=== PATIENT | female | born 1965 ===

== ENCOUNTER 2017-06-22 15:32 | Emergency (ER) | payer SELFPAY ==
[2017-06-22 15:32] VITALS: BMI 28.8
--- NOTE | 2017-06-22 16:17 | ED PDOC ---
HPI: Chest Pain Time Seen by Provider: 06/22/17 15:50 Chief Complaint (Nursing): Flu-like Symptoms Chief Complaint (Provider): Chest Pain History Per: Patient History/Exam Limitations: no limitations Onset/Duration Of Symptoms: Days (x2) Current Symptoms Are (Timing): Still Present Pain Scale Rating Of: 9 Quality: "Pain" Modifying Factors: None Exacerbating Factors: None Alleviating Factors: None Additional Complaint(s): 52 year old male presents to the ED complaining of chest pain x2 days. The patient states that the pain is exacerbated by coughing. Denies fevers, chills, nausea, diarrhea, abdominal pain. Of note: Patient was recently seen at [facility] 2 days coronado and was diagnosed with a transient ischemic attack PMD: Rola Estes Past Medical History Reviewed: Historical Data, Nursing Documentation, Vital Signs Vital Signs: Last Vital Signs Temp 98.2 F 06/22/17 15:47 Pulse 72 06/22/17 15:47 Resp 18 06/22/17 15:47 BP 128/79 06/22/17 15:47 Pulse Ox 98 06/25/17 14:17 - Medical History PMH: HTN, Hypercholesterolemia Denies: Alzheimer's Disease, Anemia, Anxiety, Arthritis, Asthma, Bipolar Disorder, Bronchitis, Cardia Arrhythmia, CHF, COPD, Crohn's Disease, Dementia, Depression, Diverticulitis, Emphysema, Fibromyalgia, Fractures, Gastrointestinal Ulcer, Gall Bladder Disease, HIV, Hyperthyroidism, Hypothyroidism, Kidney Stones, Migraine, Mitral Valve Prolapse, Osteoporosis, Pancreatitis, Paranoia, Parkinson's Disease, Peripheral Edema, Pneumonia, Post Traumatic Stress Disorder, Chronic Kidney Disease, Schizophrenia, Seizures, Sickle Cell Disease, Sexually Transmitted Disease, Sleep Apnea, TIA - Surgical History Surgical History: Denies: Appendectomy, Cholecystectomy, Coronary Stent, Pacemaker - Family History Family History: States: No Known Family Hx - Immunization History Hx Tetanus Toxoid Vaccination: No - Home Medications Home Medications: Ambulatory Orders Medication Instructions Recorded Atenolol [Tenormin] 50 mg PO DAILY 06/15/17 Ibuprofen [Motrin Ib] 600 mg PO PRN PRN 06/15/17 Nitroglycerin [Nitrostat] 0.4 mg SL PRN PRN 06/15/17 Aspirin [Ecotrin] 81 mg PO 0800 30 Days tabec 06/17/17 Atorvastatin [Lipitor] 40 mg PO DIN 30 Days tab 06/17/17 Potassium Chloride [K-Dur 20 mEq 20 meq PO BRK #30 tab 06/17/17 ER Tab] hydroCHLOROthiazide [Microzide] 12.5 mg PO DAILY cap 06/17/17 Albuterol HFA [Ventolin HFA 90 2 puff IH [id number] PRN #1 inhaler 06/22/17 mcg/actuation (8 g)] Azithromycin [Zithromax] 250 mg PO DAILY #6 tab 06/22/17 Promethazine/Codeine 5 ml PO Q12 PRN #100 ml 06/22/17 [Codeine/Promethazine 10 MG/5 Ml-6.25 MG/5 Ml] - Allergies Allergies/Adverse Reactions: Allergies Allergy/AdvReac Type Severity Reaction Status Date / Time No Known Allergies Allergy Verified 06/22/17 15:39 Review of Systems Constitutional: Negative for: Fever, Chills Cardiovascular: Positive for: Chest Pain Respiratory: Positive for: Cough Gastrointestinal: Negative for: Nausea, Abdominal Pain, Diarrhea Physical Exam - Reviewed Nursing Documentation Reviewed: Yes Vital Signs Reviewed: Yes - Physical Exam Appears: Positive for: Non-toxic, No Acute Distress Head Exam: Positive for: ATRAUMATIC, NORMAL INSPECTION, NORMOCEPHALIC Skin: Positive for: Normal Color, Warm, Dry. Negative for: Rash Eye Exam: Positive for: Normal appearance, EOMI, PERRL ENT: Positive for: Normal ENT Inspection. Negative for: Nasal Congestion, Tonsillar Exudate, Tonsillar Swelling Neck: Positive for: Normal, Painless ROM, Supple Cardiovascular/Chest: Positive for: Regular Rate, Rhythm, Chest Non Tender. Negative for: Tachycardia Respiratory: Positive for: Rales (rhales at lower base). Negative for: Normal Breath Sounds, Wheezing, Respiratory Distress Gastrointestinal/Abdominal: Positive for: Normal Exam, Bowel Sounds, Soft. Negative for: Mass, Guarding, Rebound Back: Positive for: Normal Inspection. Negative for: L CVA Tenderness, R CVA Tenderness Extremity: Positive for: Normal ROM. Negative for: Tenderness, Deformity, Swelling Lymphatic: Positive for: Normal Exam. Negative for: Adenopathy Neurologic/Psych: Positive for: Alert, Oriented, Gait - Laboratory Results Result Diagrams: 06/22/17 16:17 06/22/17 16:17 - ECG O2 Sat by Pulse Oximetry: 98 (RA) Pulse Ox Interpretation: Normal - Progress ED Course And Treament: ekg: nsr 65bpm; no ectopy no acute changes compared with old ekg done at [place] cxr: no acute diseaese Medical Decision Making Medical Decision Makin Initial Impression 52 y/o male presenting with chest pain Initial Plan: * EKG * PROBNP * CMP * Troponin * CBC * CXR * Influenza A B * Reevaluation Documented by Dagmar Armstrong acting as a scribe for Jorge Donis PA-C. All medical record entries made by the Scribe were at my direction and personally dictated by me. I have reviewed the chart and agree that the record accurately reflects my personal performance of the history, physical exam, medical decision making, and the department course for this patient. I have also personally directed, reviewed, and agree with the discharge instructions and disposition. Disposition - Clinical Impression Clinical Impression: Bronchitis - Patient ED Disposition Is Patient to be Admitted: No - Disposition Disposition: Routine/Home Disposition Time: 18:10 Condition: FAIR Prescriptions: Albuterol HFA [Ventolin HFA 90 mcg/actuation (8 g)] 2 puff IH [id number] PRN #1 inhaler PRN Reason: Cough Azithromycin [Zithromax] 250 mg PO DAILY #6 tab Promethazine/Codeine [Codeine/Promethazine 10 MG/5 Ml-6.25 MG/5 Ml] 5 ml PO Q12 PRN #100 ml PRN Reason: Cough Instructions: Acute Bronchitis (ED) Forms: [employer] (Bhutanese), [facility] ED School/Work Excuse
[2017-06-22 16:18] VITALS: BP 128/79; PULSE 72; RESP 18; TEMP 98.2; O2SAT 98
[2017-06-22 16:21] LABS: BASO % 1.1 % (0.0-2.0); EOS # 0.3 K/uL (0.0-0.7); EOS % 7.1 % (0.0-4.0); HEMATOCRIT 36.9 % (34.0-47.0); LYMPH # 1.6 K/uL (1.0-4.3); LYMPH % 36.6 % (20.0-40.0); MEAN CELL VOLUME 87.2 fl (81.0-99.0); MEAN CORPUSCULAR HEMOGLOBIN 28.4 pg (27.0-31.0); MEAN CORPUSCULAR HGB CONC 32.5 g/dL (33.0-37.0); MEAN PLATELET VOLUME 7.6 fl (7.2-11.7); MONO # 0.5 K/uL (0.0-0.8); MONO % 12.3 % (0.0-10.0); NEUT # 1.9 K/uL (1.8-7.0); NEUT % 42.9 % (50.0-75.0); NRBC % 0.1 % (0.0-0.0); RED CELL DISTRIBUTION WIDTH 14.5 % (11.5-14.5); WHITE BLOOD COUNT 4.4 K/uL (4.8-10.8)
[2017-06-22 16:31] LABS: BILIRUBIN,TOTAL 0.7 mg/dl (0.2-1.3); CALCIUM 8.9 mg/dL (8.4-10.2); CARBON DIOXIDE 28 mmol/L (22-30); CHLORIDE 102 mmol/L (98-107); GFR AFRICAN-AMERICAN > 60; GLUCOSE,RANDOM 88 mg/dL (65-105); SODIUM 138 mmol/l (132-148); TOTAL PROTEIN 7.8 G/DL (6.3-8.2)
[2017-06-22 16:36] LABS: ALKALINE PHOSPHATASE 108 U/L (38-126); ALT/SGPT 37 U/L (9-52); AST/SGOT 40 U/L (14-36); BLOOD UREA NITROGEN 13 mg/dl (7-17); POTASSIUM 4.5 MMOL/L (3.6-5.0)
[2017-06-22] MEDS ORDERED: Albuterol-Ipratrop 3 mg / 0.5 (3 ml) UD INH STA (16:45)
[2017-06-22] MEDS ORDERED: Albuterol-Ipratrop 3 mg / 0.5 (3 ml) UD ONE (17:04)
--- NOTE | 2017-06-22 18:53 | RAD ---
HISTORY: cough COMPARISON: No prior. TECHNIQUE: Chest PA and lateral FINDINGS: LUNGS: No active pulmonary disease. PLEURA: No significant pleural effusion identified. No pneumothorax apparent. CARDIOVASCULAR: No radiographic findings to suggest acute or significant cardiovascular disease. OSSEOUS STRUCTURES: No significant abnormalities. VISUALIZED UPPER ABDOMEN: Normal. OTHER FINDINGS: None. IMPRESSION: No active disease.
--- NOTE | 2017-06-23 09:30 | CARD ---
APPROVED REPORT EKG Measurement Heart [id number] <Conclusion> Normal sinus rhythm Normal ECG
== END 2017-06-22 18:10 | disposition home or self-care (01) ==
LOC: H.ER 15:32
DX: J40 Bronchitis, not specified as acute or chronic (principal); E78.00 Pure hypercholesterolemia, unspecified; I10 Essential (primary) hypertension; Z79.82 Long term (current) use of aspirin; Z86.73 Personal history of transient ischemic attack (TIA), and cerebral infarction without residual deficits

== ENCOUNTER 2017-09-13 20:20 | Emergency (ER) | payer SELFPAY ==
[2017-09-13 20:21] VITALS: BMI 29.1
[2017-09-13 20:26] VITALS: BP 115/75; PULSE 84; RESP 16; TEMP 98.7; O2SAT 98
--- NOTE | 2017-09-13 21:37 | ED PDOC ---
History of Present Illness History of Present Illness: Diana Burgess is a 52 year old female, with a past medical history of hypertension and diabetes, who presents to the emergency department complaining of fever, body aches and generalized weakness onset for x3 days. Patient took Theraflu with minimal relief. She denies any other medical complaints. PMD: None provided. HPI: Influenza Time Seen by Provider: 09/13/17 20:30 Chief Complaint: Flu-like Symptoms Chief Complaint (Provider): Flu-like symptoms History Per: Patient Exam Limitations: no limitations Onset/Duration Of Symptoms: Days (x3) Symptoms include: fever, bodyaches, other (generalized weakness.) Past Medical History Reviewed: Historical Data, Nursing Documentation, Vital Signs Vital Signs: Last Vital Signs Temp 98.7 F 09/13/17 20:24 Pulse 84 09/13/17 20:24 Resp 16 09/13/17 20:24 BP 115/75 09/13/17 20:24 Pulse Ox 98 09/13/17 20:24 - Medical History PMH: Diabetes, HTN, Hypercholesterolemia Denies: Alzheimer's Disease, Anemia, Anxiety, Arthritis, Asthma, Bipolar Disorder, Bronchitis, Cardia Arrhythmia, CHF, COPD, Crohn's Disease, Dementia, Depression, Diverticulitis, Emphysema, Fibromyalgia, Fractures, Gastrointestinal Ulcer, Gall Bladder Disease, HIV, Hyperthyroidism, Hypothyroidism, Kidney Stones, Migraine, Mitral Valve Prolapse, Osteoporosis, Pancreatitis, Paranoia, Parkinson's Disease, Peripheral Edema, Pneumonia, Post Traumatic Stress Disorder, Chronic Kidney Disease, Schizophrenia, Seizures, Sickle Cell Disease, Sexually Transmitted Disease, Sleep Apnea, TIA - Surgical History Surgical History: No Surg Hx Denies: Appendectomy, Cholecystectomy, Coronary Stent, Pacemaker - Family History Family History: States: Unknown Family Hx - Immunization History Hx Tetanus Toxoid Vaccination: No - Home Medications Home Medications: Ambulatory Orders Medication Instructions Recorded Atenolol [Tenormin] 50 mg PO DAILY 06/15/17 Ibuprofen [Motrin Ib] 600 mg PO PRN PRN 06/15/17 Nitroglycerin [Nitrostat] 0.4 mg SL PRN PRN 06/15/17 Aspirin [Ecotrin] 81 mg PO 0800 30 Days tabec 06/17/17 Atorvastatin [Lipitor] 40 mg PO DIN 30 Days tab 06/17/17 Potassium Chloride [K-Dur 20 mEq 20 meq PO BRK #30 tab 06/17/17 ER Tab] hydroCHLOROthiazide [Microzide] 12.5 mg PO DAILY cap 06/17/17 Albuterol HFA [Ventolin HFA 90 2 puff IH [id number] PRN #1 inhaler 06/22/17 mcg/actuation (8 g)] Azithromycin [Zithromax] 250 mg PO DAILY #6 tab 06/22/17 Promethazine/Codeine 5 ml PO Q12 PRN #100 ml 06/22/17 [Codeine/Promethazine 10 MG/5 Ml-6.25 MG/5 Ml] Oseltamivir Phosphate [Tamiflu] 75 mg PO BID #10 capsule 09/13/17 - Allergies Allergies/Adverse Reactions: Allergies Allergy/AdvReac Type Severity Reaction Status Date / Time No Known Allergies Allergy Verified 06/22/17 15:39 Review of Systems ROS Statement: Except As Marked, All Systems Reviewed And Found Negative Constitutional: Positive for: Fever, Weakness (generalized ), Other (body aches) Physical Exam - Reviewed Nursing Documentation Reviewed: Yes Vital Signs Reviewed: Yes - Physical Exam Appears: Positive for: Non-toxic, Uncomfortable Head Exam: Positive for: ATRAUMATIC, NORMAL INSPECTION, NORMOCEPHALIC Skin: Positive for: Normal Color, Warm, Dry Eye Exam: Positive for: Normal appearance, EOMI, PERRL ENT: Positive for: Pharyngeal Erythema (bilaterally. Uvula midline none edemic) Neck: Positive for: Painless ROM, Supple Cardiovascular/Chest: Positive for: Regular Rate, Rhythm. Negative for: Murmur Respiratory: Positive for: Normal Breath Sounds (CTA). Negative for: Respiratory Distress Extremity: Positive for: Normal ROM. Negative for: Tenderness, Deformity, Swelling Lymphatic: Negative for: Other (Cervical nodes negative.) Neurologic/Psych: Positive for: Alert, Oriented Medical Decision Making Medical Decision Making: Initial Impression: Viral syndrome Initial Plan: --Reevaluation ~ Scribe Attestation: Documented by Mikey Burk, acting as a scribe for Mike Garcia PA-C. Provider Scribe Attestation: All medical record entries made by the Scribe were at my direction and personally dictated by me. I have reviewed the chart and agree that the record accurately reflects my personal performance of the history, physical exam, medical decision making, and the department course for this patient. I have also personally directed, reviewed, and agree with the discharge instructions and disposition. - ECG O2 Sat by Pulse Oximetry: 98 (RA) Pulse Ox Interpretation: Normal Disposition - Clinical Impression Clinical Impression: Influenza, Influenza-like symptoms - Patient ED Disposition Is Patient to be Admitted: No Counseled Patient/Family Regarding: Diagnosis, Need For Followup - Disposition Disposition Time: 22:46 Condition: GOOD Additional Instructions: FLUIDS REST DAYQUIL NYQUIL CHICKEN SOUP Prescriptions: Oseltamivir Phosphate [Tamiflu] 75 mg PO BID #10 capsule Instructions: Flu, Flu, Adult (DC) Forms: [employer] (C[place] Rican), [employer] (Indonesian)
== END 2017-09-13 22:16 | disposition home or self-care (01) ==
LOC: H.ER 20:20
DX: J11.1 Influenza due to unidentified influenza virus with other respiratory manifestations (principal); E11.9 Type 2 diabetes mellitus without complications; E78.00 Pure hypercholesterolemia, unspecified; I10 Essential (primary) hypertension; Z79.82 Long term (current) use of aspirin

== ENCOUNTER 2017-10-11 07:17 | Day surgery (SDC) | payer SELFPAY ==
[2017-10-11 07:38] VITALS: BMI 27.9
[2017-10-11] MEDS ORDERED: Lactated Ringer's 1,000 ML IV ONE (07:42)
[2017-10-11] MEDS ORDERED: Propofol 10 mg/ml Inj (20 ML) ONE (08:06)
[2017-10-11 09:05] VITALS: BP 150/76; PULSE 60; RESP 14; TEMP 97; O2SAT 0
== END 2017-10-11 09:51 | disposition home or self-care (01) ==
LOC: H.ENDO 07:17 → EDSTATUS 09:30 → H.ENDO 09:51
PROVIDERS: ATTEND Internal Medicine Gastroenterology
DX: Z12.11 Encounter for screening for malignant neoplasm of colon (principal); I25.10 Atherosclerotic heart disease of native coronary artery without angina pectoris; E78.5 Hyperlipidemia, unspecified; I10 Essential (primary) hypertension; K64.4 Residual hemorrhoidal skin tags; K64.8 Other hemorrhoids
CPT/HCPCS: 45378; J2001; J2704; J7120

== ENCOUNTER 2018-08-22 18:57 | Emergency (ER) | payer SELFPAY ==
[2018-08-22 18:57] VITALS: BMI 27.9
[2018-08-22] MEDS ORDERED: Sodium Chloride 0.9% 1,000 ML IV STA (19:27)
[2018-08-22 19:56] LABS: BASO % 0.4 % (0.0-2.0); EOS % 0.1 % (0.0-4.0); HEMOGLOBIN 12.2 g/dL (12.0-16.0); LYMPH # 0.6 K/uL (1.0-4.3); LYMPH % 5.2 % (20.0-40.0); MEAN CELL VOLUME 89.1 fl (81.0-99.0); MEAN CORPUSCULAR HEMOGLOBIN 29.8 pg (27.0-31.0); MEAN CORPUSCULAR HGB CONC 33.4 g/dL (33.0-37.0); MONO # 0.7 K/uL (0.0-0.8); NEUT % 88.3 % (50.0-75.0); PLATELET COUNT 209 K/uL (130-400); RED CELL DISTRIBUTION WIDTH 14.3 % (11.5-14.5); WHITE BLOOD COUNT 12.4 K/uL (4.8-10.8)
[2018-08-22 19:57] LABS: VENOUS BLOOD GAS BASE EXCESS 2.6 mmol/L (0.0-2.0); VENOUS BLOOD GAS PCO2 41 mmHg (40-60); VENOUS BLOOD GAS PO2 32 mm/Hg (30-55); VENOUS BLOOD PH 7.43 (7.32-7.43)
[2018-08-22 20:08] LABS: BLOOD UREA NITROGEN 10 mg/dl (7-17); CALCIUM 8.9 mg/dL (8.4-10.2); GFR NON-AFRICAN AMERICAN > 60
[2018-08-22 20:53] LABS: ANISOCYTOSIS SLIGHT; BANDS 2 % (0-2); LYMPHOCYTE 8 % (20-50); MONOCYTE 6 % (0-10); NEUTROPHIL 84 % (42-75); PLATELET ESTIMATE NORMAL (NORMAL); TOTAL CELLS COUNTED 100
--- NOTE | 2018-08-22 21:21 | ED PDOC ---
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 Patient states her son was recently diagnosed with flu. Yesterday, patient had body ache, chills and fever with non-productive cough and posttussive vomiting. Patient also reports of weakness and tiredness. PMD: no family provider Past Medical History Reviewed: Historical Data, Nursing Documentation, Vital Signs Vital Signs: Last Vital Signs Temp 102.5 F H 08/22/18 20:43 Pulse 97 H 08/22/18 20:36 Resp 20 08/22/18 20:36 BP 140/84 08/22/18 20:36 Pulse Ox 95 08/22/18 20:36 - Medical History PMH: Diabetes, HTN, Hypercholesterolemia Denies: Alzheimer's Disease, Anemia, Anxiety, Arthritis, Asthma, Bipolar Disorder, Bronchitis, Cardia Arrhythmia, CHF, COPD, Crohn's Disease, Dementia, Depression, Diverticulitis, Emphysema, Fibromyalgia, Fractures, Gastrointestinal Ulcer, Gall Bladder Disease, HIV, Hyperthyroidism, Hypothyroidism, Kidney Stones, Migraine, Mitral Valve Prolapse, Osteoporosis, Pancreatitis, Paranoia, Parkinson's Disease, Peripheral Edema, Pneumonia, Post Traumatic Stress Disorder, Chronic Kidney Disease, Schizophrenia, Seizures, Sickle Cell Disease, Sexually Transmitted Disease, Sleep Apnea, TIA - Surgical History Surgical History: Denies: Appendectomy, Cholecystectomy, Coronary Stent, Pacemaker - Family History Family History: States: Unknown Family Hx - Social History Current smoker - smoking cessation education provided: No Alcohol: None Drugs: Denies - Immunization History Hx Tetanus Toxoid Vaccination: No - Home Medications Home Medications: Ambulatory Orders Medication Instructions Recorded Aspirin [Aspirin Chewable] 81 mg PO DAILY 10/11/17 Atenolol [Tenormin] 100 mg PO DAILY 10/11/17 Atorvastatin [Lipitor] 40 mg PO DAILY 10/11/17 Oseltamivir Phosphate [Tamiflu] 75 mg PO BID 5 Days #10 capsule 08/22/18 - Allergies Allergies/Adverse Reactions: Allergies Allergy/AdvReac Type Severity Reaction Status Date / Time No Known Allergies Allergy Verified 08/22/18 19:08 Review of Systems ROS Statement: Except As Marked, All Systems Reviewed And Found Negative Constitutional: Positive for: Fever, Chills, Weakness, Other (body ache, tired) Respiratory: Positive for: Cough (non-productive ) Gastrointestinal: Positive for: Vomiting (posttussive ) Physical Exam - Reviewed Nursing Documentation Reviewed: Yes Vital Signs Reviewed: Yes - Physical Exam Appears: Positive for: Well (warm to touch, tired-appearing), Non-toxic, No Acute Distress Head Exam: Positive for: ATRAUMATIC, NORMAL INSPECTION, NORMOCEPHALIC Skin: Positive for: Normal Color, Warm, Dry Eye Exam: Positive for: EOMI, Normal appearance, PERRL ENT: Positive for: Normal ENT Inspection Neck: Positive for: Normal, Painless ROM, Supple. Negative for: Decreased ROM Cardiovascular/Chest: Positive for: Regular Rate, Rhythm Respiratory: Positive for: Normal Breath Sounds. Negative for: Decreased Breath Sounds, Respiratory Distress Gastrointestinal/Abdominal: Positive for: Normal Exam, Soft. Negative for: Tenderness, Guarding, Rebound Back: Positive for: Normal Inspection. Negative for: L CVA Tenderness, R CVA Tenderness Extremity: Positive for: Normal ROM. Negative for: Tenderness, Pedal Edema, Deformity Neurologic/Psych: Positive for: Alert, Oriented (x3). Negative for: Motor/Sensory Deficits Medical Decision Making Medical Decision Making: Time: 1926 Assessment: 53 year old female with history of lupus and HTN presents with flu- like illness. Will treat for flu, check labs, provide symptomatic care and reevaluate. Plan: --Venous blood gas shock --BMP --CBC w/ Differential --Normal saline 1000 mls/hr --Toradol 30mg --Tylenol 975mg --Reevaluation 945PM --Patient is feeling much better, vitals improved --Will discharge with Tamiflu and NSAID --Very well appearing upon discharge --Advised to followup with PMD Scribe Attestation: Documented by Zeferino Alva acting as a scribe for Lee Park MD Provider Attestation: All medical record entries made by the Scribe were at my direction and personally dictated by me. I have reviewed the chart and agree that the record accurately reflects my personal performance of the history, physical exam, medical decision making, and the department course for this patient. I have also personally directed, reviewed, and agree with the discharge instructions and disposition. - Laboratory Results Result Diagrams: 08/22/18 19:51 08/22/18 19:51 Lab Results: pO2 32 mm/Hg (30-55) 08/22/18 19:47 VBG pH 7.43 (7.32-7.43) 08/22/18 19:47 VBG pCO2 41 mmHg (40-60) 08/22/18 19:47 VBG HCO3 26.0 mmol/L 08/22/18 19:47 VBG Total CO2 28.5 mmol/L (22-28) H 08/22/18 19:47 VBG O2 Sat (Calc) 70.8 % (40-65) H 08/22/18 19:47 VBG Base Excess 2.6 mmol/L (0.0-2.0) H 08/22/18 19:47 VBG Potassium 3.7 mmol/L (3.6-5.2) 08/22/18 19:47 Sodium 134.0 mmol/L (132-148) 08/22/18 19:47 Chloride 102.0 mmol/L (98-107) 08/22/18 19:47 Glucose 108 mg/dL (65-105) H 08/22/18 19:47 Lactate 1.3 mmol/L (0.7-2.1) 08/22/18 19:47 FiO2 21.0 % 08/22/18 19:47 - ECG O2 Sat by Pulse Oximetry: 95 (RA) Pulse Ox Interpretation: Normal Disposition - Clinical Impression Clinical Impression: Influenza - Patient ED Disposition Is Patient to be Admitted: No - Disposition Referrals: Rex Seymour MD [Family Provider] - Disposition: Routine/Home Disposition Time: 21:51 Condition: IMPROVED Prescriptions: Oseltamivir Phosphate [Tamiflu] 75 mg PO BID 5 Days #10 capsule Instructions: Flu, Adult (DC) Forms: [facility] ([place] Islander) Print Language: [place]
[2018-08-22 22:32] VITALS: BP 128/66; PULSE 92; RESP 16; TEMP 98; O2SAT 98
== END 2018-08-22 22:26 | disposition home or self-care (01) ==
LOC: H.ER 18:57
DX: J11.1 Influenza due to unidentified influenza virus with other respiratory manifestations (principal); E11.9 Type 2 diabetes mellitus without complications; M32.9 Systemic lupus erythematosus, unspecified; I10 Essential (primary) hypertension
CPT/HCPCS: 80048; 82803; 85025; 96361; 96374; 99283; J1885; J7030